=== PATIENT | female | born 1990 | race Caucasian/White ===

== ENCOUNTER 2020-03-19 23:21 | Emergency (ER) | payer SELFPAY ==
[~2020-03-19] VITALS: Ht 160 cm; Wt 62.0 kg
--- NOTE | 2020-03-19 23:42 | PHYS DOC ---
Past History Past Medical History: Alcoholism, Anxiety, Bipolar, Depression, Heart Disease (RAYSHAWN GRECO MD) Past Surgical History: Other (RAYSHAWN GRECO MD) Smoking: Non-smoker Alcohol Use: None Drug Use: None (RAYSHAWN GRECO MD) General Adult HPI: HPI: "Fucking kill me.. kill me... fuck it.. kill me please..."..."I am a sick fucking person.. ".. " Fucking kill me.. ".." I am fucking drunk person..." I am fucking bad person.. ".. ".. Kill me.. please"..."Just fucking kill me.. " Patient is a 29 year old female who presents via police to ambulance referral for mental status change. Patient was banging her head against the wall and table. The police arrived and they restrained her to the floor to prevent further self injury. Patient reportedly has been drinking very heavily and bystanders stated she may also done some other drugs. Pt. reportedly possible hx of depression and bipolar disorder. Patient stating repeatedly she wished to . Patient did vomit a large amount of stomach contents in the ambulance. Has vomited several times after arrival to the emergency department. Patient does have a 2 cm laceration to left eyebrow inflicted by banging her head a gainst the wall prior to arrival. Patient has not been into our facility since 11/26/13 for threaten of IUP. (RAYSHAWN GRECO MD) Review of Systems: Review of Systems: Constitutional: Denies fever or chills Eyes: Denies change in visual acuity HENT: Denies nasal congestion or sore throat . Complaints of head laceration- self induced by banging her head against a table and wall. Respiratory: Denies cough or shortness of breath Cardiovascular: Denies chest pain or edema GI: Denies abdominal pain, nausea, vomiting, bloody stools or diarrhea : Denies dysuria Musculoskeletal: Denies back pain or joint pain Integument: Denies rash Neurologic: Complains of headache. Denies, focal weakness or sensory changes Endocrine: Denies polyuria or polydipsia Lymphatic: Denies swollen glands Psychiatric: Complaints of depression, suicidal ideation and anxiety (RAYSHAWN GRECO MD) Family History: Family History: Not currently available (RAYSHAWN GRECO MD) Current Medications: Current Meds: See nursing for home meds (RAYSHAWN GRECO MD) Allergies: Allergies: Allergies Coded Allergies Type Severity Reaction Last Updated Verified No Known Allergies Allergy Unknown 11/25/13 No (RAYSHAWN GRECO MD) Physical Exam: PE: Constitutional: in acute emotional distress, very intoxicated in appearance. [] HENT: Normocephalic,, bilateral external ears normal, oropharynx moist, no oral exudates, nose normal. Patient has 2 cm laceration left eyebrow Eyes: PERRLA, EOMI, conjunctiva normal, no discharge. [] Neck: Normal range of motion, no tenderness, supple, no stridor. [] Cardiovascular: Tachycardia heart rate regular rhythm, no murmur [] Lungs & Thorax: Bilateral breath sounds at apex with few scattered wheezes on auscultation [] Abdomen: Bowel sounds normal, soft, no tenderness, no masses, no pulsatile masses. Actively vomiting Skin: Warm, dry, no erythema, no rash. [] Back: No tenderness, no CVA tenderness. [] Extremities: No tenderness, no cyanosis, no clubbing, ROM intact, no edema. [] Neurologic: Alert and oriented X name and location, , moving all extremities. Does have distal sensory, no gross focal deficits noted. Discoordinated Psychologic: Affect agitated, judgement impaired, mood normal. [] (RAYSHAWN GRECO MD) EKG: EKG: My interpretation EKG shows a sinus rhythm at 85 bpm. No acute morphology [] (RAYSHAWN GRECO MD) Radiology/Procedures: Radiology/Procedures: [address] [address] IMAGING REPORT Signed PATIENT: TIKA AMAYA ACCOUNT: [id number] : 1990 LOCATION: ER AGE: 29 SEX: F EXAM STATUS: PRE ER ORD. PHYSICIAN: RAYSHAWN GRECO MD REASON: nv PROCEDURE: ACUTE ABDOMEN SERIES Abdominal Series dated 03/20/2020. No comparison available. Clinical Indication: Abdominal pain. Findings: Single upright chest shows normal heart and mediastinal contours. Lung volumes are low, limiting evaluation. No consolidation or pleural effusion. No pneum othorax. Flat and upright views of the abdomen show nondilated gas filled loops of bowel. No air-fluid level on the upright view. No abnormal calcifications are identified. There is no evidence of pneumoperitoneum. Impression chest: No acute radiographic abnormality. Impression abdomen: Non-obstructive bowel gas pattern. Electronically signed by: Jean Franklin MD (03/20/2020 1:38 AM) [facility] DICTATED AND SIGNED BY: JEAN FRANKLIN MD DATE: 03/20/207 CC: SALO BARRERA DO; RAYSHAWN GRECO MD ~MTH0 0 [][place] [id number] IMAGING REPORT Signed PATIENT: TIKA AMAYA ACCOUNT: [id number] : 1990 LOCATION: ER AGE: 29 SEX: F EXAM STATUS: PRE ER ORD. PHYSICIAN: RAYSHAWN GRECO MD REASON: intoxicated , head injury PROCEDURE: CT HEAD AND CERVICAL SPINE WO CT HEAD AND C-SPINE WO dated 03/19/2020 12:03 AM. Comparison: None. Clinical Indication: Reason: intoxicated , head injury / Spl. Instructions: / History: , HEAD AND NECK PAIN Technical factors: Contiguous 5 mm axial images of the head were obtained from the skullbase to the vertex. No contrast was administered. In addition, 3 mm axial images of the cervical spine were acquired with thin cut coronal and sagittal reconstructions. One or more of the following individualized dose reduction techniques were utilized for this examination: 1. Automated exposure control 2. Adjustment of the mA and/or kV according to patient size 3. Use of iterative reconstruction technique Findings head: Ventricles and sulci are within normal limits for age. No evidence of ventricular shift or mass effect. Brain parenchyma is of normal attenuation. There is no evidence of hemorrhage or extra-axial collection. Minimal mucosal thickening of the ethmoid air cells. The visualized paranasal sinuses and mastoid air cells are otherwise clear. IMPRESSION HEAD: No evidence of acute intracranial abnormality. Findings cervical spine: Images were acquired from the skull base to T3. There is straightening of the normal cervical lordosis, otherwise sagittal alignment is anatomic. Vertebral body heights are maintained. No prevertebral soft tissue swelling. Posterior elements are intact. No fractures are identified. No significant spondylotic changes. No apparent focal disc herniation. The bony canal and foramen are adequate. Visualized soft tissue structures unremarkable. Limited images of lung apices are clear. IMPRESSION CERVICAL SPINE: No evidence of fracture or malalignment. Electronically signed by: Jean Franklin MD (03/20/2020 1:26 AM) [facility] DICTATED AND SIGNED BY: JEAN FRANKLIN MD DATE: 03/20/20 0124 CC: SALO BARRERA DO; RAYSHAWN GRECO MD ~MTH0 0 (RAYSHAWN GRECO MD) Heart Score: HEART Score for Chest Pain: HEART Score for Chest Pain Response (Comments) Value History Slighlty/Non-Suspicious 0 ECG Normal 0 Age < 45 0 Risk Factors 1 or 2 Risk Factors 1 Troponin < Normal Limit 0 Total 1 Risk Factors: Risk Factors: DM, Current or recent (<one month) smoker, HTN, HLP, family history of CAD, obesity. Risk Scores: Score 0 - 3: 2.5% MACE over next 6 weeks - Discharge Home Score 4 - 6: 20.3% MACE over next 6 weeks - Admit for Clinical Observation Score 7 - 10: 72.7% MACE over next 6 weeks - Early Invasive Strategies (RAYSHAWN GRECO MD) Course & Med Decision Making: Course & Med Decision Making Pertinent Labs and Imaging studies reviewed. (See chart for details) Laceration Lt eye brow cleaned and closed with Dermabond. Pt. instructed to expect ecchymosis and a black eye on the left. Patient not to use antibiotic ointment to the laceration because this will dissolve the tissue glue Medical cleared for Psych. 0500. See Psych. report - [facility]. Pt. endorsed to Dr. Zelaya at shift change. He will make disposition of pt. Impression: 1. Altered mental status 2. Alcohol intoxication= 238- recheck 137 3. Suicidal ideation 4. Hypernatremia 146 5. Hypokalemia 3.3 6. Head Injury- self induced 7. Laceration 2 cm Lt eye brow [] (RAYSHAWN GRECO MD) Course & Med Decision Making Patient evaluated by guidance center. Patient will be provided a care plan. Patient is stable for discharge. (ROSEMARIE ZELAYA DO) Dragon Disclaimer: Dragon Disclaimer: This electronic medical record was generated, in whole or in part, using a voice recognition dictation system. (RAYSHAWN GRECO MD) Departure Departure: Impression: Primary Impression: Intoxication Additional Impressions: Alcohol intoxication Facial laceration Disposition: 01 DC HOME SELF CARE/HOMELESS Condition: STABLE Referrals: SALO BARRERA DO (PCP) Patient Instructions: Alcohol Intoxication, Facial Laceration RAYSHAWN GRECO MD Mar 19, 2020 23:42 ROSEMARIE ZELAYA DO Mar 20, 2020 06:33
[2020-03-20] MEDS ORDERED: FAMOTIDINE 20 MG/2 ML VIAL IVP ONE
[2020-03-20] MEDS ORDERED: MVI, ADULT NO.4 WITH VIT K 10 ML, THIAMINE INJ 100 MG in IV RINGERS SOLUTION,LACTATED 1... IV ONE (00:15)
[2020-03-20] MEDS ORDERED: FOLIC ACID 1 MG TABLET PO ONE (00:15)
[2020-03-20 00:29] LABS: BASO % 1 % (0-3); EOS # 0.1 x10^3/uL (0.0-0.7); EOS % 1 % (0-3); LYMPH # 1.5 x10^3/uL (1.0-4.8); LYMPH % 27 % (24-48); MEAN CORPUSCULAR HEMOGLOBIN 30 pg (25-35); MEAN CORPUSCULAR HGB CONC 33 g/dL (31-37); MEAN CORPUSCULAR VOLUME 92 fL (79-100); MONO # 0.4 x10^3/uL (0.0-1.1); MONO % 7 % (0-9); NEUT # 3.7 x10^3uL (1.8-7.7); NEUT % 65 % (31-73); PLATELET COUNT 203 x10^3/uL (140-400); RED BLOOD COUNT 4.59 x10^6/uL (3.50-5.40); RED CELL DISTRIBUTION WIDTH 13.4 % (11.5-14.5); WHITE BLOOD COUNT 5.7 x10^3/uL (4.0-11.0)
[2020-03-20 00:39] LABS: CALCIUM 8.5 mg/dL (8.5-10.1); CREATININE 0.7 mg/dL (0.6-1.0); GFR 98.3; POTASSIUM 3.3 mmol/L (3.5-5.1)
[2020-03-20 00:45] LABS: ALBUMIN 4.6 g/dL (3.4-5.0); DIRECT BILIRUBIN 0.1 mg/dL (0.0-0.2); ETHANOL 238 mg/dL (0-10); MAGNESIUM 2.4 mg/dL (1.8-2.4); SALIC < 2.8 mg/dL (2.8-20.0); TOTAL BILIRUBIN 0.2 mg/dL (0.2-1.0); TOTAL PROTEIN 7.9 g/dL (6.4-8.2)
[2020-03-20 00:46] LABS: ACETAMIN < 2.0 mcg/mL (10-30)
--- NOTE | 2020-03-20 00:52 | EKG ---
[address] [address] Test Date: 2020-03-20 Test Time: 00:36:55 Pat Name: TIKA AMAYA Department: Room: Gender: F Settlement Agent: : 1990 Requested By: RAYSHAWN GRECO Order Number: [id number] Reading MD: Measurements Intervals [place] Rate: 85 P: 42 MA: 146 QRS: 62 QRSD: 86 T: 42 QT: 372 QTc: 443 Interpretive Statements SINUS RHYTHM NORMAL ECG RI6.02 No previous ECG available for comparison
[2020-03-20] MEDS ORDERED: THIAMINE 200 MG/2 ML VIAL. IV ONE (01:21)
[2020-03-20] MEDS ORDERED: MVI, ADULT NO.4 WITH VIT K 10 ML VIAL IV ONE (01:21)
--- NOTE | 2020-03-20 01:29 | RAD ---
CT HEAD AND C-SPINE WO dated 03/19/2020 12:03 AM. Comparison: None. Clinical Indication: Reason: intoxicated , head injury / Spl. Instructions: / History: , HEAD AND NE CK PAIN Technical factors: Contiguous 5 mm axial images of the head were obtained from the skullbase to the v ertex. No contrast was administered. In addition, 3 mm axial images of the cervical spine were acquir ed with thin cut coronal and sagittal reconstructions. One or more of the following individualized dose reduction techniques were utilized for this examinat ion: 1. Automated exposure control 2. Adjustment of the mA and/or kV according to patient size 3. Use of iterative reconstruction technique Findings head: Ventricles and sulci are within normal limits for age. No evidence of ventricular shift or mass effec t. Brain parenchyma is of normal attenuation. There is no evidence of hemorrhage or extra-axial colle ction. Minimal mucosal thickening of the ethmoid air cells. The visualized paranasal sinuses and mastoid air cells are otherwise clear. IMPRESSION HEAD: No evidence of acute intracranial abnormality. Findings cervical spine: Images were acquired from the skull base to T3. There is straightening of the normal cervical lordosi s, otherwise sagittal alignment is anatomic. Vertebral body heights are maintained. No prevertebral s oft tissue swelling. Posterior elements are intact. No fractures are identified. No significant spondylotic changes. No apparent focal disc herniation. The bony canal and foramen are adequate. Visualized soft tissue structures unremarkable. Limited images of lung apices are clear. IMPRESSION CERVICAL SPINE: No evidence of fracture or malalignment. Electronically signed by: Jean Franklin MD (03/20/2020 1:26 AM) [facility]
--- NOTE | 2020-03-20 01:41 | RAD ---
Abdominal Series dated 03/20/2020. No comparison available. Clinical Indication: Abdominal pain. Findings: Single upright chest shows normal heart and mediastinal contours. Lung volumes are low, limiting eval uation. No consolidation or pleural effusion. No pneumothorax. Flat and upright views of the abdomen show nondilated gas filled loops of bowel. No air-fluid level o n the upright view. No abnormal calcifications are identified. There is no evidence of pneumoperitone um. Impression chest: No acute radiographic abnormality. Impression abdomen: Non-obstructive bowel gas pattern. Electronically signed by: Jean Franklin MD (03/20/2020 1:38 AM) [facility]
[2020-03-20 02:05] LABS: BARBITURATES NEG (NEG); BENZODIAZEPINES NEG (NEG); CANNABINOIDS POS (NEG); COCAINE NEG (NEG); METHADONE NEG (NEG); OPIATES NEG (NEG); PHENCYCLIDINE NEG (NEG)
[2020-03-20 02:09] LABS: AMPHETAMINE/METHAMPHETAMINE NEG (NEG)
[2020-03-20 02:18] LABS: BACTERIA,URINE 0 /HPF (0-FEW); BILIRUBIN,URINE NEG (NEG); CLARITY,URINE CLEAR; COLOR,URINE YELLOW; GLUCOSE,URINE NEG (NEG); NITRITE,URINE NEG (NEG); RBC,URINE 0 /HPF (0-2); SQUAMOUS EPITHELIAL CELL,UR OCC /LPF; UROBILINOGEN,URINE 0.2 mg/dL (0.2 mg/dL); WBC,URINE OCC /HPF (0-4)
[2020-03-20] MEDS ORDERED: TETANUS AND DIPHTHERIA TOX/PF 0.5 ML VIAL. VAX IM ONE (05:00)
[2020-03-20] MEDS ORDERED: DIPH,PERTUSS(ACELL),TET VAC/PF 0.5 ML SYRINGE. VAX IM ONE (05:00)
[2020-03-20 07:15] VITALS: BP 104/50
== END 2020-03-20 07:25 | disposition home or self-care (01) ==
LOC: ER 23:21
DX: S01.112A Laceration without foreign body of left eyelid and periocular area, initial encounter (principal); R41.82 Altered mental status, unspecified; F10.129 Alcohol abuse with intoxication, unspecified; R45.851 Suicidal ideations; E87.0 Hyperosmolality and hypernatremia; E87.6 Hypokalemia; X58.XXXA Exposure to other specified factors, initial encounter; Y93.89 Activity, other specified; Y92.89 Other specified places as the place of occurrence of the external cause; Y99.8 Other external cause status; Y90.8 Blood alcohol level of 240 mg/100 ml or more
CPT/HCPCS: 12011; 36415; 70450; 72125; 74022; 80048; 80076; 80307; 80329; 81001; 83735; 85025; 85610; 85730; 86705; 86709; 86803; 87340; 93005; 96365; 96375; 99285; G0480; J3490; J7120

== ENCOUNTER 2020-09-16 09:02 | Emergency (ER) | payer OTHER ==
[~2020-09-16] VITALS: Ht 160 cm; Wt 62.0 kg
[2020-09-16 09:05] VITALS: BP 102/67
--- NOTE | 2020-09-16 09:24 | PHYS DOC ---
Past History Past Medical History: Alcoholism, Anxiety, Bipolar, Depression, Heart Disease Past Surgical History: No Surgical History Smoking: Non-smoker Alcohol Use: Rarely Drug Use: None General Adult EDM: Chief Complaint: LOWER BACK PAIN OR INJURY HPI: HPI: Patient is a 30-year-old female coming in for bilateral low back pain. Patient states that the pain started as a "twinge" 2 days when she was bending over to pickle sorter her child. States is been getting worse and she is have difficulty sleeping. Denies any history of prior back injury or fall. Patient states she has had some difficulty urinating due to the pain and denies bowel incontinence. Been taking Tylenol ibuprofen. Review of Systems: Review of Systems: All other systems within normal limits except for as noted in the HPI Allergies: Allergies: Allergies Coded Allergies Type Severity Reaction Last Updated Verified No Known Allergies Allergy Unknown 11/25/13 No Physical Exam: PE: Constitutional: Well developed, well nourished, no acute distress, non-toxic appearance. [] HENT: Normocephalic, atraumatic, bilateral external ears normal, nose normal. [] Eyes: PERRLA, conjunctiva normal, no discharge. [] Neck: No rigidity, supple, no stridor. [] Cardiovascular: Regular rate and rhythm, brisk cap refill [] Lungs & Thorax: Non labored symmetric respirations, no tachypnea or respiratory distress [] Abdomen: Soft, nondistended. Skin: Warm, dry, no erythema, no rash. [] Back: Unremarkable, no step-off or deformity, no point tenderness, pain not reproducible to palpation Extremities: No deformities, range of motion grossly intact, no lower extremity edema [] Neurologic: Alert and oriented X 3, no focal deficits noted. [] Psychologic: Affect normal, judgement normal, mood normal. [] Current Patient Data: Vital Signs: Vital Signs Date Time Temp Pulse Resp B/P (MAP) Pulse Ox O2 Delivery O2 Flow Rate FiO2 09/16/20 09:05 97.9 83 16 102/67 (79) 97 Room Air EKG: EKG: [] Radiology/Procedures: Radiology/Procedures: [address] [address] IMAGING REPORT Signed PATIENT: TIKA AMAYA ACCOUNT: [id number] : 1990 LOCATION: ER AGE: 30 SEX: F EXAM STATUS: REG ER ORD. PHYSICIAN: BRITTANEY HARDEN MD REASON: pain PROCEDURE: CT LUMBAR SPINE WO CONTRAST INDICATION: Reason: pain in the spine/ Spl. Instructions: / History: . COMPARISON: None. TECHNIQUE: Axial CT images obtained through the lumbar spine. One or more of the following individualized dose reduction techniques were utilized for this examination: 1. Automated exposure control; 2. Adjustment of the mA and/or kV according to patient size; 3. Use of iterative reconstruction technique. FINDINGS: No evidence of dislocation. There is some mild degenerative changes of the lumbar spine with disc protrusions and early osteophyte formation. No acute fracture line is seen. IMPRESSION: * No acute fracture or dislocation of lumbar spine. * There is some mild degenerative changes with disc protrusion and early osteophyte formation at vertebral body endplates as well as uncovertebral and facet hypertrophy. Electronically signed by: Amita Marie MD (09/16/2020 9:52 AM) [id number] DICTATED AND SIGNED BY: AMITA MARIE MD DATE: 09/16/20 0946 CC: BRITTANEY HARDEN MD; NOHELIA HOFFMAN MD ~MTH0 0 [] Heart Score: C/O Chest Pain: No Risk Factors: Risk Factors: DM, Current or recent (<one month) smoker, HTN, HLP, family history of CAD, obesity. Risk Scores: Score 0 - 3: 2.5% MACE over next 6 weeks - Discharge Home Score 4 - 6: 20.3% MACE over next 6 weeks - Admit for Clinical Observation Score 7 - 10: 72.7% MACE over next 6 weeks - Early Invasive Strategies Course & Med Decision Making: Course & Med Decision Making Pertinent Labs and Imaging studies reviewed. (See chart for details) [] Dragon Disclaimer: Sixto Disclaimer: This electronic medical record was generated, in whole or in part, using a voice recognition dictation system. Departure Departure: Impression: Primary Impression: Back muscle spasm Disposition: HOME / SELF CARE / HOMELESS Condition: STABLE Referrals: NOHELIA HOFFMAN MD (PCP) Patient Instructions: Back Exercises Scripts Cyclobenzaprine Hcl (CYCLOBENZAPRINE HCL) 5 Mg Tablet 1 TAB PO TID for tid for 5 Days, #1 TAB Prov: BRITTANEY HARDEN MD 09/16/20 Ibuprofen (IBUPROFEN) 800 Mg Tablet 1 TAB PO TID for Anti-inflammatory for 10 Days, #30 TAB Prov: BRITTANEY HARDEN MD 09/16/20 BRITTANEY HARDEN MD Sep 16, 2020 09:24
[2020-09-16] MEDS ORDERED: ORPHENADRINE CITRATE 60 MG/2 ML VIAL. IM ONE (09:30)
[2020-09-16] MEDS ORDERED: KETOROLAC 60 MG/2 ML VIAL. IM ONE (09:30)
--- NOTE | 2020-09-16 09:55 | RAD ---
INDICATION: Reason: pain in the spine/ Spl. Instructions: / History: . COMPARISON: None. TECHNIQUE: Axial CT images obtained through the lumbar spine. One or more of the following individualized dose reduction techniques were utilized for this examinat ion: 1. Automated exposure control; 2. Adjustment of the mA and/or kV according to patient size; 3 . Use of iterative reconstruction technique. FINDINGS: No evidence of dislocation. There is some mild degenerative changes of the lumbar spine with disc protrusions and early osteophyt e formation. No acute fracture line is seen. IMPRESSION: * No acute fracture or dislocation of lumbar spine. * There is some mild degenerative changes with disc protrusion and early osteophyte formation at ann tebral body endplates as well as uncovertebral and facet hypertrophy. Electronically signed by: Renard Mayorga MD (09/16/2020 9:52 AM) [id number]
[2020-09-16] MEDS ORDERED: IBUP800T19 PO (10:04)
[2020-09-16] MEDS ORDERED: CYCL5TAB PO (10:04)
== END 2020-09-16 10:17 | disposition home or self-care (01) ==
LOC: ER 09:02
DX: M62.838 Other muscle spasm (principal); M54.5 Low back pain; F10.20 Alcohol dependence, uncomplicated; F41.9 Anxiety disorder, unspecified; F31.9 Bipolar disorder, unspecified; Y90.9 Presence of alcohol in blood, level not specified
CPT/HCPCS: 72131; 96372; 99284; J1885; J2360